=== PATIENT | female | born 1985 | race Caucasian/White ===

== ENCOUNTER 2020-10-04 10:21 | Emergency (ER) | payer OTHER, SELFPAY ==
[2020-10-04] VITALS (34 sets, daily range): BP systolic 92–148; BP diastolic 45–111; PULSE 69–118; RESP 14–24; TEMP 36.2; O2SAT 97–100
[2020-10-04] MEDS: diphenhydrAMINE 50 MG/ML VIAL (10:25)
[2020-10-04] MEDS: LORazepam 2 MG/ML INJ (10:25)
--- NOTE | 2020-10-04 10:30 | ED_ITS ---
HPI - Altered Mental Status <Marla Martinez DO - Last Filed: 10/05/20 08:11> General Chief Complaint: Toxicology Problem Stated Complaint: 'out of control' Time Seen by Provider: 10/04/20 10:29 Source: EMS History of Present Illness HPI narrative: Patient is a 35-year-old female with history of IVDA presenting from [facility]. She arrived on a bus noted to have some decreasing mental status at this center she was given 4 mg intranasally of Narcan and 9:18 a.m.. At that time EMS was called they arrived and evaluated her patient refused transport she is awake alert oriented and appropriate by the time she got to an exam room she became unruly and out of control EMS was called again and transported to the emergency department. She had a drug screen there positive for amphetamines, THC, methadone, methamphetamines, opiates, fentanyl. Now is throwing arms and legs around not appropriate, redirectable or able to answer questions. She admits to using methamphetamine today and Xanax last night, although drug screen is not positive for benzodiazepine. complaint: altered mental status Related Data Home Medications Medication Instructions Recorded Confirmed Unobtainable 10/04/20 10/04/20 Allergies Allergy/AdvReac Type Severity Reaction Status Date / Time hydrocodone AdvReac Intermediate Nausea Verified 10/04/20 10:47 Review of Systems <Marla Martinez DO - Last Filed: 10/05/20 08:11> Review of Systems ROS Unobtainable: Unobtainable due to medical condition and Unobtainable due to mental condition Exam <Marla Martinez DO - Last Filed: 10/05/20 08:11> Initial Vital Signs Initial Vital Signs: Vital Signs Pulse Rate 110 H 10/04/20 10:37 Blood Pressure 141/111 H 10/04/20 10:37 Pulse Oximetry 100 10/04/20 10:37 Gen.: Alert female sitting up kicking arms and legs HEENT: Head is atraumatic Neck: Supple no JVD Lungs: Speaking without difficulty no sign of respiratory distress Cardiac: Peripheral pulses intact no cyanosis Abdomen: Extremities: No gross bony deformities peripheral pulses intact Neurologic: Alert not oriented moving arms and legs seeming to have some sort of full body spasm <Enrique Hernandez MD - Last Filed: 10/04/20 23:48> Initial Vital Signs Initial Vital Signs: Vital Signs Pulse Rate 110 H 10/04/20 10:37 Blood Pressure 141/111 H 10/04/20 10:37 Pulse Oximetry 100 10/04/20 10:37 Course <Marla Martinez DO - Last Filed: 10/05/20 08:11> Orders Ordered: Discontinued Medications Ketamine HCl (Ketamine 500 Mg/5 Ml Inj) 300 mg IM NOW ONE Stop: 10/04/20 10:46 Last Admin: 10/04/20 10:50 Dose: 300 mg Documented by: GIOVANNIYLE Vital Signs Vital signs: Vital Signs - 8 hr 10/04/20 16:00 10/04/20 16:15 10/04/20 16:30 Pulse Rate 80 74 74 Respiratory Rate Blood Pressure 124/77 116/68 111/70 Pulse Oximetry 100 100 99 10/04/20 16:45 10/04/20 17:00 10/04/20 17:15 Pulse Rate 79 86 103 H Respiratory Rate Blood Pressure 114/69 115/66 Pulse Oximetry 99 98 98 10/04/20 17:17 10/04/20 18:08 10/04/20 18:10 Pulse Rate 87 97 H 97 H Respiratory Rate 20 Blood Pressure 118/61 119/98 H Pulse Oximetry 99 99 97 10/04/20 20:07 Pulse Rate 100 H Respiratory Rate 14 Blood Pressure Pulse Oximetry 99 <Enrique Hernandez MD - Last Filed: 10/04/20 23:48> Course Course Narrative: Patient stable for discharge. Up and walking unassisted. Not combative. Not altered. Patient was provided disposition by Dr. Martinez, appropriate for discharge. Orders Ordered: Discontinued Medications Ketamine HCl (Ketamine 500 Mg/5 Ml Inj) 300 mg IM NOW ONE Stop: 10/04/20 10:46 Last Admin: 10/04/20 10:50 Dose: 300 mg Documented by: DBROYLE Vital Signs Vital signs: Vital Signs - 8 hr 10/04/20 16:00 10/04/20 16:15 10/04/20 16:30 Pulse Rate 80 74 74 Respiratory Rate Blood Pressure 124/77 116/68 111/70 Pulse Oximetry 100 100 99 10/04/20 16:45 10/04/20 17:00 10/04/20 17:15 Pulse Rate 79 86 103 H Respiratory Rate Blood Pressure 114/69 115/66 Pulse Oximetry 99 98 98 10/04/20 17:17 10/04/20 18:08 10/04/20 18:10 Pulse Rate 87 97 H 97 H Respiratory Rate 20 Blood Pressure 118/61 119/98 H Pulse Oximetry 99 99 97 10/04/20 20:07 Pulse Rate 100 H Respiratory Rate 14 Blood Pressure Pulse Oximetry 99 MDM - Altered Mental Status <Marla Martinez, DO - Last Filed: 10/05/20 08:11> Lab Data Result diagrams: 10/04/20 11:12 10/04/20 11:40 Labs: Lab Results 10/04/20 10/04/20 10/04/20 Range/Units 11:12 11:12 11:31 WBC 7.0 (4.5-11.0) X10^3/uL RBC 3.86 L (4.0-5.2) X10^6/uL Hgb 12.3 (12.0-16.0) g/dL Hct 35.7 L (36-46) % MCV 92.6 (80-100) fL MCH 31.8 (26-34) PG MCHC 34.3 (30-36) % RDW 13.7 (11.6-14.8) % Plt Count 362 (150-400) X10^3/uL Neut % (Auto) 56.5 (50-75) % Lymph % (Auto) 30.4 (25-40) % [place] % (Auto) 9.0 (3-14) % Eos % (Auto) 3.3 (2-4) % Baso % (Auto) 0.8 (0-2) % Neut # (Auto) 4000 (3935-9006) /uL Lymph # (Auto) 2100 (1200-7773) /uL [place] # (Auto) 600 (0-900) /uL Eos # (Auto) 200 (0-450) /uL Baso # (Auto) 100 (0-100) /uL Sodium (137-145) mmol/L Potassium (3.4-5.1) mmol/L Chloride (98-107) mmol/L Carbon Dioxide (22-32) mmol/L BUN (7-17) mg/dL Creatinine (0.52-1.04) mg/dL Estimated GFR (>60) mL/min BUN/Creatinine Ratio (6-22) Glucose (70-100) mg/dL Calcium (8.4-10.2) mg/dL Total Bilirubin (0.2-1.3) mg/dL AST (14-36) IU/L ALT (<35) IU/L Alkaline Phosphatase (38-126) U/L Total Protein (6.3-8.2) g/dL Albumin (3.5-5.0) g/dL Globulin (1.7-4.1) g/dL Albumin/Globulin Ratio (1.0-2.8) Lipase Serum , Qual Negative (Negative) Urine Color Urine Appearance Urine pH (4.5-8.0) Ur Specific [place] (1.000-1.035) Urine Protein (Negative) Urine Glucose (UA) (Negative) g/dL Urine Ketones (NEGATIVE) Urine Occult Blood (Negative) Urine Nitrate (Negative) Urine Bilirubin (NEGATIVE) Urine Urobilinogen (0.2) E.U./dL Ur Leukocyte Esterase (NEGATIVE) Urine RBC (0-5/HPF) Urine WBC (0-5/HPF) Ur Squamous Epith Cells (0-5/HPF) Amorphous Sediment Urine Bacteria (None) Urine Mucus (Negative) Ur Culture Indicated? Salicylates (<20) mg/dL U Opiates 300ng/mL cut (Negative) Ur Oxycodone Screen (Negative) Urine Methadone Screen (Negative) Acetaminophen (10-30) ug/mL Ur Barbiturates Screen (Negative) U Tricyclic Antidepress (Negative) Ur Phencyclidine Scrn (Negative) Ur Amphetamines Screen (Negative) U Methamphetamines Scrn (Negative) Ur MDMA Scrn (Ecstasy) (Negative) U Benzodiazepines Scrn (Negative) Urine Cocaine Screen (Negative) U Marijuana (THC) Screen (Negative) Ethyl Alcohol ( - 10) mg/dL SARS-CoV-2 (PCR) Negative (Negative) 10/04/20 10/04/20 10/04/20 Range/Units 11:40 11:40 17:20 WBC (4.5-11.0) X10^3/uL RBC (4.0-5.2) X10^6/uL Hgb (12.0-16.0) g/dL Hct (36-46) % MCV (80-100) fL MCH (26-34) PG MCHC (30-36) % RDW (11.6-14.8) % Plt Count (150-400) X10^3/uL Neut % (Auto) (50-75) % Lymph % (Auto) (25-40) % [place] % (Auto) (3-14) % Eos % (Auto) (2-4) % Baso % (Auto) (0-2) % Neut # (Auto) (1037-7115) /uL Lymph # (Auto) (3798-0004) /uL [place] # (Auto) (0-900) /uL Eos # (Auto) (0-450) /uL Baso # (Auto) (0-100) /uL Sodium 140 (137-145) mmol/L Potassium 3.7 (3.4-5.1) mmol/L Chloride 107 (98-107) mmol/L Carbon Dioxide 27 (22-32) mmol/L BUN 10 (7-17) mg/dL Creatinine 0.70 (0.52-1.04) mg/dL Estimated GFR > 60.0 (>60) mL/min BUN/Creatinine Ratio 14.3 (6-22) Glucose 131 H (70-100) mg/dL Calcium 9.6 (8.4-10.2) mg/dL Total Bilirubin 0.2 (0.2-1.3) mg/dL AST 24 (14-36) IU/L ALT 15 (<35) IU/L Alkaline Phosphatase 77 (38-126) U/L Total Protein 7.6 (6.3-8.2) g/dL Albumin 4.3 (3.5-5.0) g/dL Globulin 3.3 (1.7-4.1) g/dL Albumin/Globulin Ratio 1.3 (1.0-2.8) Lipase Cancelled 697 H Serum , Qual (Negative) Urine Color Yellow Urine Appearance Sl cloudy Urine pH 7.0 (4.5-8.0) Ur Specific [place] 1.020 (1.000-1.035) Urine Protein Negative (Negative) Urine Glucose (UA) Negative (Negative) g/dL Urine Ketones Negative (NEGATIVE) Urine Occult Blood Trace-intact (Negative) Urine Nitrate Negative (Negative) Urine Bilirubin Negative (NEGATIVE) Urine Urobilinogen 0.2 (0.2) E.U./dL Ur Leukocyte Esterase Negative (NEGATIVE) Urine RBC 0-1/hpf (0-5/HPF) Urine WBC 1-5/hpf (0-5/HPF) Ur Squamous Epith Cells 1-5 /hpf (0-5/HPF) Amorphous Sediment 2+ Urine Bacteria Moderate (10-30) H (None) Urine Mucus 1+ H (Negative) Ur Culture Indicated? Specimen cultured Salicylates < 1.0 (<20) mg/dL U Opiates 300ng/mL cut (Negative) Ur Oxycodone Screen (Negative) Urine Methadone Screen (Negative) Acetaminophen < 10 L (10-30) ug/mL Ur Barbiturates Screen (Negative) U Tricyclic Antidepress (Negative) Ur Phencyclidine Scrn (Negative) Ur Amphetamines Screen (Negative) U Methamphetamines Scrn (Negative) Ur MDMA Scrn (Ecstasy) (Negative) U Benzodiazepines Scrn (Negative) Urine Cocaine Screen (Negative) U Marijuana (THC) Screen (Negative) Ethyl Alcohol < 10 ( - 10) mg/dL SARS-CoV-2 (PCR) (Negative) 10/04/20 Range/Units 17:20 WBC (4.5-11.0) X10^3/uL RBC (4.0-5.2) X10^6/uL Hgb (12.0-16.0) g/dL Hct (36-46) % MCV (80-100) fL MCH (26-34) PG MCHC (30-36) % RDW (11.6-14.8) % Plt Count (150-400) X10^3/uL Neut % (Auto) (50-75) % Lymph % (Auto) (25-40) % [place] % (Auto) (3-14) % Eos % (Auto) (2-4) % Baso % (Auto) (0-2) % Neut # (Auto) (6582-4430) /uL Lymph # (Auto) (0447-4734) /uL [place] # (Auto) (0-900) /uL Eos # (Auto) (0-450) /uL Baso # (Auto) (0-100) /uL Sodium (137-145) mmol/L Potassium (3.4-5.1) mmol/L Chloride (98-107) mmol/L Carbon Dioxide (22-32) mmol/L BUN (7-17) mg/dL Creatinine (0.52-1.04) mg/dL Estimated GFR (>60) mL/min BUN/Creatinine Ratio (6-22) Glucose (70-100) mg/dL Calcium (8.4-10.2) mg/dL Total Bilirubin (0.2-1.3) mg/dL AST (14-36) IU/L ALT (<35) IU/L Alkaline Phosphatase (38-126) U/L Total Protein (6.3-8.2) g/dL Albumin (3.5-5.0) g/dL Globulin (1.7-4.1) g/dL Albumin/Globulin Ratio (1.0-2.8) Lipase Serum , Qual (Negative) Urine Color Urine Appearance Urine pH (4.5-8.0) Ur Specific [place] (1.000-1.035) Urine Protein (Negative) Urine Glucose (UA) (Negative) g/dL Urine Ketones (NEGATIVE) Urine Occult Blood (Negative) Urine Nitrate (Negative) Urine Bilirubin (NEGATIVE) Urine Urobilinogen (0.2) E.U./dL Ur Leukocyte Esterase (NEGATIVE) Urine RBC (0-5/HPF) Urine WBC (0-5/HPF) Ur Squamous Epith Cells (0-5/HPF) Amorphous Sediment Urine Bacteria (None) Urine Mucus (Negative) Ur Culture Indicated? Salicylates (<20) mg/dL U Opiates 300ng/mL cut Positive H (Negative) Ur Oxycodone Screen Negative (Negative) Urine Methadone Screen Positive H (Negative) Acetaminophen (10-30) ug/mL Ur Barbiturates Screen Negative (Negative) U Tricyclic Antidepress Negative (Negative) Ur Phencyclidine Scrn Negative (Negative) Ur Amphetamines Screen Positive H (Negative) U Methamphetamines Scrn Positive H (Negative) Ur MDMA Scrn (Ecstasy) Negative (Negative) U Benzodiazepines Scrn Negative (Negative) Urine Cocaine Screen Negative (Negative) U Marijuana (THC) Screen Positive H (Negative) Ethyl Alcohol ( - 10) mg/dL SARS-CoV-2 (PCR) (Negative) MDM Narrative Medical decision making narrative: Patient is flailing arms and legs not redirectable becoming dangerous to staff and self. Ativan and Benadryl initially given with minimal sedation Haldol is added. His 10 minutes later still no sedation decision for 300 of ketamine IM (4mg/kg) patient became sleepy but still arousable. Patient slept for 7 hours in the emergency department. She got up to use the restroom, but then quickly fell back asleep. Social work try to get in to evaluate her and talk to her. No suicidal ideations. Her sister called to check on her at some point in the emergency department. Patient signed out to for discharge. <Enrique Hernandez MD - Last Filed: 10/04/20 23:48> Lab Data Labs: Lab Results 10/04/20 10/04/20 10/04/20 Range/Units 11:12 11:12 11:31 WBC 7.0 (4.5-11.0) X10^3/uL RBC 3.86 L (4.0-5.2) X10^6/uL Hgb 12.3 (12.0-16.0) g/dL Hct 35.7 L (36-46) % MCV 92.6 (80-100) fL MCH 31.8 (26-34) PG MCHC 34.3 (30-36) % RDW 13.7 (11.6-14.8) % Plt Count 362 (150-400) X10^3/uL Neut % (Auto) 56.5 (50-75) % Lymph % (Auto) 30.4 (25-40) % [place] % (Auto) 9.0 (3-14) % Eos % (Auto) 3.3 (2-4) % Baso % (Auto) 0.8 (0-2) % Neut # (Auto) 4000 (7946-1504) /uL Lymph # (Auto) 2100 (8040-2530) /uL [place] # (Auto) 600 (0-900) /uL Eos # (Auto) 200 (0-450) /uL Baso # (Auto) 100 (0-100) /uL Sodium (137-145) mmol/L Potassium (3.4-5.1) mmol/L Chloride (98-107) mmol/L Carbon Dioxide (22-32) mmol/L BUN (7-17) mg/dL Creatinine (0.52-1.04) mg/dL Estimated GFR (>60) mL/min BUN/Creatinine Ratio (6-22) Glucose (70-100) mg/dL Calcium (8.4-10.2) mg/dL Total Bilirubin (0.2-1.3) mg/dL AST (14-36) IU/L ALT (<35) IU/L Alkaline Phosphatase (38-126) U/L Total Protein (6.3-8.2) g/dL Albumin (3.5-5.0) g/dL Globulin (1.7-4.1) g/dL Albumin/Globulin Ratio (1.0-2.8) Lipase Serum , Qual Negative (Negative) Urine Color Urine Appearance Urine pH (4.5-8.0) Ur Specific [place] (1.000-1.035) Urine Protein (Negative) Urine Glucose (UA) (Negative) g/dL Urine Ketones (NEGATIVE) Urine Occult Blood (Negative) Urine Nitrate (Negative) Urine Bilirubin (NEGATIVE) Urine Urobilinogen (0.2) E.U./dL Ur Leukocyte Esterase (NEGATIVE) Urine RBC (0-5/HPF) Urine WBC (0-5/HPF) Ur Squamous Epith Cells (0-5/HPF) Amorphous Sediment Urine Bacteria (None) Urine Mucus (Negative) Ur Culture Indicated? Salicylates (<20) mg/dL U Opiates 300ng/mL cut (Negative) Ur Oxycodone Screen (Negative) Urine Methadone Screen (Negative) Acetaminophen (10-30) ug/mL Ur Barbiturates Screen (Negative) U Tricyclic Antidepress (Negative) Ur Phencyclidine Scrn (Negative) Ur Amphetamines Screen (Negative) U Methamphetamines Scrn (Negative) Ur MDMA Scrn (Ecstasy) (Negative) U Benzodiazepines Scrn (Negative) Urine Cocaine Screen (Negative) U Marijuana (THC) Screen (Negative) Ethyl Alcohol ( - 10) mg/dL SARS-CoV-2 (PCR) Negative (Negative) 10/04/20 10/04/20 10/04/20 Range/Units 11:40 11:40 17:20 WBC (4.5-11.0) X10^3/uL RBC (4.0-5.2) X10^6/uL Hgb (12.0-16.0) g/dL Hct (36-46) % MCV (80-100) fL MCH (26-34) PG MCHC (30-36) % RDW (11.6-14.8) % Plt Count (150-400) X10^3/uL Neut % (Auto) (50-75) % Lymph % (Auto) (25-40) % [place] % (Auto) (3-14) % Eos % (Auto) (2-4) % Baso % (Auto) (0-2) % Neut # (Auto) (8339-3262) /uL Lymph # (Auto) (5869-6290) /uL [place] # (Auto) (0-900) /uL Eos # (Auto) (0-450) /uL Baso # (Auto) (0-100) /uL Sodium 140 (137-145) mmol/L Potassium 3.7 (3.4-5.1) mmol/L Chloride 107 (98-107) mmol/L Carbon Dioxide 27 (22-32) mmol/L BUN 10 (7-17) mg/dL Creatinine 0.70 (0.52-1.04) mg/dL Estimated GFR > 60.0 (>60) mL/min BUN/Creatinine Ratio 14.3 (6-22) Glucose 131 H (70-100) mg/dL Calcium 9.6 (8.4-10.2) mg/dL Total Bilirubin 0.2 (0.2-1.3) mg/dL AST 24 (14-36) IU/L ALT 15 (<35) IU/L Alkaline Phosphatase 77 (38-126) U/L Total Protein 7.6 (6.3-8.2) g/dL Albumin 4.3 (3.5-5.0) g/dL Globulin 3.3 (1.7-4.1) g/dL Albumin/Globulin Ratio 1.3 (1.0-2.8) Lipase Cancelled 697 H Serum , Qual (Negative) Urine Color Yellow Urine Appearance Sl cloudy Urine pH 7.0 (4.5-8.0) Ur Specific [place] 1.020 (1.000-1.035) Urine Protein Negative (Negative) Urine Glucose (UA) Negative (Negative) g/dL Urine Ketones Negative (NEGATIVE) Urine Occult Blood Trace-intact (Negative) Urine Nitrate Negative (Negative) Urine Bilirubin Negative (NEGATIVE) Urine Urobilinogen 0.2 (0.2) E.U./dL Ur Leukocyte Esterase Negative (NEGATIVE) Urine RBC 0-1/hpf (0-5/HPF) Urine WBC 1-5/hpf (0-5/HPF) Ur Squamous Epith Cells 1-5 /hpf (0-5/HPF) Amorphous Sediment 2+ Urine Bacteria Moderate (10-30) H (None) Urine Mucus 1+ H (Negative) Ur Culture Indicated? Specimen cultured Salicylates < 1.0 (<20) mg/dL U Opiates 300ng/mL cut (Negative) Ur Oxycodone Screen (Negative) Urine Methadone Screen (Negative) Acetaminophen < 10 L (10-30) ug/mL Ur Barbiturates Screen (Negative) U Tricyclic Antidepress (Negative) Ur Phencyclidine Scrn (Negative) Ur Amphetamines Screen (Negative) U Methamphetamines Scrn (Negative) Ur MDMA Scrn (Ecstasy) (Negative) U Benzodiazepines Scrn (Negative) Urine Cocaine Screen (Negative) U Marijuana (THC) Screen (Negative) Ethyl Alcohol < 10 ( - 10) mg/dL SARS-CoV-2 (PCR) (Negative) 10/04/20 Range/Units 17:20 WBC (4.5-11.0) X10^3/uL RBC (4.0-5.2) X10^6/uL Hgb (12.0-16.0) g/dL Hct (36-46) % MCV (80-100) fL MCH (26-34) PG MCHC (30-36) % RDW (11.6-14.8) % Plt Count (150-400) X10^3/uL Neut % (Auto) (50-75) % Lymph % (Auto) (25-40) % [place] % (Auto) (3-14) % Eos % (Auto) (2-4) % Baso % (Auto) (0-2) % Neut # (Auto) (0932-4652) /uL Lymph # (Auto) (9840-9197) /uL [place] # (Auto) (0-900) /uL Eos # (Auto) (0-450) /uL Baso # (Auto) (0-100) /uL Sodium (137-145) mmol/L Potassium (3.4-5.1) mmol/L Chloride (98-107) mmol/L Carbon Dioxide (22-32) mmol/L BUN (7-17) mg/dL Creatinine (0.52-1.04) mg/dL Estimated GFR (>60) mL/min BUN/Creatinine Ratio (6-22) Glucose (70-100) mg/dL Calcium (8.4-10.2) mg/dL Total Bilirubin (0.2-1.3) mg/dL AST (14-36) IU/L ALT (<35) IU/L Alkaline Phosphatase (38-126) U/L Total Protein (6.3-8.2) g/dL Albumin (3.5-5.0) g/dL Globulin (1.7-4.1) g/dL Albumin/Globulin Ratio (1.0-2.8) Lipase Serum , Qual (Negative) Urine Color Urine Appearance Urine pH (4.5-8.0) Ur Specific [place] (1.000-1.035) Urine Protein (Negative) Urine Glucose (UA) (Negative) g/dL Urine Ketones (NEGATIVE) Urine Occult Blood (Negative) Urine Nitrate (Negative) Urine Bilirubin (NEGATIVE) Urine Urobilinogen (0.2) E.U./dL Ur Leukocyte Esterase (NEGATIVE) Urine RBC (0-5/HPF) Urine WBC (0-5/HPF) Ur Squamous Epith Cells (0-5/HPF) Amorphous Sediment Urine Bacteria (None) Urine Mucus (Negative) Ur Culture Indicated? Salicylates (<20) mg/dL U Opiates 300ng/mL cut Positive H (Negative) Ur Oxycodone Screen Negative (Negative) Urine Methadone Screen Positive H (Negative) Acetaminophen (10-30) ug/mL Ur Barbiturates Screen Negative (Negative) U Tricyclic Antidepress Negative (Negative) Ur Phencyclidine Scrn Negative (Negative) Ur Amphetamines Screen Positive H (Negative) U Methamphetamines Scrn Positive H (Negative) Ur MDMA Scrn (Ecstasy) Negative (Negative) U Benzodiazepines Scrn Negative (Negative) Urine Cocaine Screen Negative (Negative) U Marijuana (THC) Screen Positive H (Negative) Ethyl Alcohol ( - 10) mg/dL SARS-CoV-2 (PCR) (Negative) Discharge Plan Departure Patient Disposition: Home Clinical Impression: Polysubstance abuse Instructions: DI for Substance Use Disorder Activity Restrictions/Additional Instructions: *You have been diagnosed with polysubstance every a *What to do: You need to stop using drugs *Continue to take medications as directed *Follow up with your primary care provider in 2-3 days *Return to ER if you should have any new, worsening or concerning symptoms Prescriptions: No Action Unobtainable RF: 0
[2020-10-04] MEDS: HALOPERIDOL 5 MG/ML VIAL (10:34)
[2020-10-04] MEDS: KETAMINE 500 MG/5 ML INJ 300 MG IM (10:50)
[2020-10-04 11:21] LABS: Add Manual Diff / Slide Review NO; Basophils Absolute Auto 100 /uL (0-100); Basophils Percent Auto 0.8 % (0-2); Eosinophils Absolute Auto 200 /uL (0-450); Eosinophils Percent Auto 3.3 % (2-4); Hematocrit 35.7 % (36-46); Hemoglobin 12.3 g/dL (12.0-16.0); Lymphocytes Absolute Auto 2100 /uL (1100-4500); Lymphocytes Percent Auto 30.4 % (25-40); Mean Corpuscular HGB Conc 34.3 % (30-36); Mean Corpuscular Hemoglobin 31.8 PG (26-34); Mean Corpuscular Volume 92.6 fL (80-100); Monocytes Absolute Auto 600 /uL (0-900); Neutrophils Absolute Auto 4000 /uL (1500-7000); Neutrophils Percent Auto 56.5 % (50-75); Platelet Count 362 X10^3/uL (150-400); Red Blood Cell Count 3.86 X10^6/uL (4.0-5.2); Red Cell Distribution Width 13.7 % (11.6-14.8)
--- NOTE | 2020-10-04 11:21 | PC.NURSE ---
Addendum entered by Meghna Reddy R.N. 10/04/20 11:30: At re-eval of medication pt had minimal results, continued to thrash and kick. Provider then ordered Ketamine IM. Medication given, Provider remained in room for approx 5 min post dose. RN remained with patient for constant visualization of patient. At [facility] 1010 an RN was able to get an IV in as patient had become more restful with interment short burst of energy and mild thrashing and flipping from side to side and kicking her legs in the bed. BP have been stable, O2 98-100% on RA, Resp even and unlabored. Lights have been turned down and steps/attempt to decrease stimuli have been done from time of admit. Belong and clothing have been secured in locked cabinet. Siezure padded on bed rails to protect extremities. Pt arrived with multiple bruises and abrasions in various stages of healing to all extremities. Original Note: Pt arrived via EMS, report Narcan given at 0918 after pt was discovered unresponsive on the [facility] bus. Raymond noriega was awake, talking, hallucinating, and fidging. After transfer to ED [facility] patient became increasingly aggitated, was thrashing, swinging arms and legs hit the side rails. Pt yelling at and threatening staff I will smack you bitch and I could kick your ass if I wanted to. Pt able maintain and protect airway. Pt was not redirectable verbally, reaching out at staff and grabbing at staff. Provider was in the room to evaluate, gave orders for Haldol, Benadryl and Ativan. Provider re-evaluated at the bedside, at 25 post admin
[2020-10-04 11:42] LABS: Pregnancy Test Serum,Qual Negative (Negative)
[2020-10-04 11:47] LABS: COVID19 -Nasal RAPID Negative (Negative)
[2020-10-04 11:55] LABS: Acetaminophen < 10 ug/mL (10-30); Alanine Aminotransferase 15 IU/L (<35); Albumin 4.3 g/dL (3.5-5.0); Albumin Globulin Ratio 1.3 (1.0-2.8); Alkaline Phosphatase 77 U/L (38-126); Aspartate Aminotransferase 24 IU/L (14-36); BUN Creatinine Ratio 14.3 (6-22); Bilirubin Total 0.2 mg/dL (0.2-1.3); Blood Urea Nitrogen 10 mg/dL (7-17); Calcium 9.6 mg/dL (8.4-10.2); Carbon Dioxide 27 mmol/L (22-32); Chloride 107 mmol/L (98-107); Estimated Glomerular Filt Rate > 60.0 mL/min (>60); Ethanol (ETOH) < 10 mg/dL; Globulin 3.3 g/dL (1.7-4.1); Glucose 131 mg/dL (70-100); HEMOLYSIS < 15 (0-50); Lipase 697 U/L (23-300); Potassium 3.7 mmol/L (3.4-5.1); Salicylate < 1.0 mg/dL (<20); Sodium 140 mmol/L (137-145); Total Protein 7.6 g/dL (6.3-8.2)
--- NOTE | 2020-10-04 11:57 | PC.NURSE ---
critical care time as pt at high risk for harming self or others w/ thrashing arms and legs, verbalization of threats, unable to be verbally redirected, multiple staff + provider to keep safe, medicate.
--- NOTE | 2020-10-04 13:03 | PC.NURSE ---
Pt lying on gurney, eyes shut, chest rising and falling
--- NOTE | 2020-10-04 15:28 | PC.NURSE ---
Pt continues to sleep soundly. She is occasionally restless but self soothes and settles into new position of comfort. Skin is pink/warm and dry. Easy work of breathing.
--- NOTE | 2020-10-04 17:41 | CM.SWNOTE ---
SCHOOL BUSINESS ADMINISTRATOR note SCHOOL BUSINESS ADMINISTRATOR consult requested for patient. Patient is a 35 y/o female who presents to this ED after showing signs of an overdose while at the [facility]. Per chart, patient had narcan administered prior to coming to ED, and required chemical sedation while in ED due to agitation and saftey concerns. SCHOOL BUSINESS ADMINISTRATOR meets with patient after being informed that she is awake and oriented. SCHOOL BUSINESS ADMINISTRATOR requests assistance from RN in waking patinet as she is asleep and sitting up when SCHOOL BUSINESS ADMINISTRATOR enters room. Patient is very drowsy during conversation, and does nod off during at times. Patient is unable to articulate to SCHOOL BUSINESS ADMINISTRATOR the events leading up to today's ED visit, but is able to clearly state that she has a safe home to return to, no SI/HI, and that she is engaged with [facility]. Patient states she is happy with care she receives from [facility]. Patient states no other needs from SCHOOL BUSINESS ADMINISTRATOR at this time. NEEMA Saul
--- NOTE | 2020-10-04 17:53 | PC.NURSE ---
Pt filemon t 1715, requesting to use the bathroom, assisted to the BR, UA collected. PLANT SUPERINTENDENT notified that patient is awake, alert and cooperative.
[2020-10-04 17:55] LABS: Appearance Urine UA SL CLOUDY; Bilirubin Urine UA NEGATIVE (NEGATIVE); Color Urine UA YELLOW; Glucose Urine UA NEGATIVE (Negative); Ketones Urine UA NEGATIVE (NEGATIVE); Leukocyte Esterase Urine UA NEGATIVE (NEGATIVE); Nitrite Urine UA NEGATIVE (Negative); Occult Blood Urine UA TRACE-INTACT (Negative); Protein Urine UA NEGATIVE (Negative); Urobilinogen Urine UA 0.2 E.U./dL (0.2)
[2020-10-04 18:03] LABS: Ur Creatinine Normal (Normal); Ur Specific Gravity Normal (Normal); Urine pH Normal (Normal)
[2020-10-04 18:04] LABS: UR Morphine/Opiate cutoff 300 Positive (Negative); Urine Amphetamines Positive (Negative); Urine Cocaine Negative (Negative); Urine Methamphetamines Positive (Negative); Urine Tetrahydrocannabinol Positive (Negative)
[2020-10-04 18:05] LABS: Urine Barbiturates Negative (Negative); Urine Benzodiazepines Negative (Negative); Urine MDMA Negative (Negative); Urine Methadone Positive (Negative); Urine Oxycodone Negative (Negative); Urine Phencyclidine Negative (Negative); Urine Tricyclic Antidepressant Negative (Negative)
[2020-10-04 18:11] LABS: Amorphous Sediment Urine 2+; Bacteria Urine Moderate (10-30); RBC Urine 0-1/HPF (0-5/HPF); Squamous Epithelial Cell Urine 1-5 /HPF (0-5/HPF); WBC Urine 1-5/HPF (0-5/HPF)
[2020-10-04 18:12] LABS: Culture Indicated Urine Specimen Cultured; Mucus Urine 1+ (Negative)
== END 2020-10-04 20:42 | disposition home or self-care (01) ==
PROVIDERS: Emergency Provider Emergency Medicine
DX: F11.129 Opioid abuse with intoxication, unspecified (principal); F15.129 Other stimulant abuse with intoxication, unspecified; F12.129 Cannabis abuse with intoxication, unspecified; Z20.822 Contact with and (suspected) exposure to COVID-19
CPT/HCPCS: 36415; 80053; 80305; 80320; 80329; 81001; 83690; 84703; 85025; 87077; 87086; 87186; 87635; 99284; 99285; 99291; 99292; C9803; G0480; J1200; J1630; J2060